=== PATIENT | male | born 1940 | race Caucasian/White ===

== ENCOUNTER 2016-07-11 20:20 | Outpatient (CLI) | payer MEDICARE | END 2016-07-12 06:15 | disposition home or self-care (01) | LOC: SLEEP 20:20 | PROVIDERS: ATTEND Family Medicine | DX: G47.33 Obstructive sleep apnea (adult) (pediatric) (principal); I10 Essential (primary) hypertension | CPT/HCPCS: 95810 ==

== ENCOUNTER 2018-10-21 05:39 | Outpatient (CLI) | payer MEDICARE ==
[~2018-10-21] VITALS: Ht 175.3 cm; Wt 95.3 kg
[2018-10-21] MEDS ORDERED: PANT40TA3 PO (14:49)
[2018-10-21] MEDS ORDERED: GLIM2TAB PO (14:49)
[2018-10-21] MEDS ORDERED: ASPI-586 PO (14:49)
[2018-10-21] MEDS ORDERED: MULT-1104 PO (14:49)
[2018-10-21] MEDS ORDERED: INSU100I29 SQ (14:49)
[2018-10-21] MEDS ORDERED: METF-399 PO (14:49)
[2018-10-21] MEDS ORDERED: FERR325T18 PO (14:49)
[2018-10-21] MEDS ORDERED: QUIN40TA14 PO (14:49)
[2018-10-21] MEDS ORDERED: NF-MINO10T PO (14:49)
[2018-10-21] MEDS ORDERED: CLON0.1T PO (14:49)
[2018-10-21] MEDS ORDERED: ATOR20TA66 PO (14:49)
[2018-10-21] MEDS ORDERED: POTA10TA10 PO (14:49)
[2018-10-21] MEDS ORDERED: FLUT9.9S NS (14:49)
[2018-10-21] MEDS ORDERED: ZOLP5TAB7 PO (14:49)
[2018-10-21] MEDS ORDERED: AMLO10TA7 PO (14:49)
[2018-10-21] MEDS ORDERED: GEMF600T8 PO (14:49)
[2018-10-21] MEDS ORDERED: GABA-488 PO (14:49)
[2018-10-21] MEDS ORDERED: HYDR12.56 PO (14:49)
== END 2018-10-21 14:55 | disposition home or self-care (01) ==
LOC: PREOP 05:39
PROVIDERS: ATTEND Otolaryngology Otolaryngology/Facial Plastic Surgery
DX: Z01.818 Encounter for other preprocedural examination (principal)